=== PATIENT | male | born 1940 | race Caucasian/White ===

== ENCOUNTER 2019-02-10 13:50 | Emergency (ER) | payer MEDICARE, OTHER ==
[~2019-02-10] VITALS: Ht 177.8 cm; Wt 111.1 kg
[2019-02-10 14:48] LABS: BASOPHILS % 0.3 % (0.0-1.0); EOSINOPHILS % 0.1 % (0.0-6.0); HEMATOCRIT 38.9 % (38.2-49.6); HEMOGLOBIN 13.2 g/dL (14.0-18.0); LYMPHOCYTES # (AUTO) 1.5 (1.0-3.2); LYMPHOCYTES % 13.7 % (18.0-39.1); MEAN CORPUSCULAR HEMOGLOBIN 30.2 pg (28-32); MEAN CORPUSCULAR HGB CONC 33.9 g/dL (31-35); MONOCYTES # (AUTO) 0.8 (0.2-0.8); MONOCYTES % 7.5 % (4.4-11.3); NEUTROPHILS # (AUTO) 8.5 (2.1-6.9); NEUTROPHILS % 77.8 % (38.7-80.0); PLATELET COUNT 239 x10e3/uL (140-360); RED BLOOD COUNT 4.37 x10e6/uL (4.3-5.7); RED CELL DISTRIBUTION WIDTH 12.7 % (11.7-14.4)
[2019-02-10 14:59] LABS: INR 0.99; PROTHROMBIN TIME 13.6 seconds (11.9-14.5)
[2019-02-10 15:00] LABS: PARTIAL THROMBOPLASTIN TIME 25.9 seconds (23.8-35.5)
[2019-02-10 15:07] LABS: ALBUMIN 3.7 g/dL (3.5-5.0); ALBUMIN/GLOBULIN RATIO 1.1 (0.8-2.0); ANION GAP 13.6 mmol/L (8-16); CALCIUM 10.1 mg/dL (8.4-10.2); CREATININE, SERUM 1.38 mg/dL (0.72-1.25); POTASSIUM 3.6 mmol/L (3.5-5.1)
[2019-02-10 15:14] LABS: CREATINE KINASE MB 1.2 ng/mL (0-5.0)
[2019-02-10 15:26] LABS: BILIRUBIN,URINE SMALL (NEGATIVE); CLARITY,URINE SL CLOUDY (CLEAR); COLOR,URINE YELLOW (YELLOW); LEUKOCYTE ESTERASE ,URINE SMALL (NEGATIVE); NITRITE,URINE NEGATIVE (NEGATIVE); PROTEIN,URINE DIPSTICK TRACE (NEGATIVE); URINE UROBILINOGEN 1 mg/dL (0.2 - 1)
[2019-02-10 15:28] LABS: KETONES,URINE 1+ (NEGATIVE)
[2019-02-10 15:40] LABS: BACTERIA,URINE MODERATE /HPF; EPITHELIAL CELLS,URINE FEW /LPF; WBC,URINE (MAN) 21-50 /HPF (0-5)
[2019-02-10] MEDS ORDERED: LABETALOL HCL 5 MG/ML 20ML VIAL IV NR ×2 (15:45→16:23)
--- NOTE | 2019-02-10 16:00 | Diagnostic Imaging Report ---
Exam: Head CT without contrast History: Confusion Comparison studies: None Technique: Axial images were obtained from the skull base to the vertex. Coronal and sagittal images reconstructed from the axial data. Dose modulation, iterative reconstruction, and/or weight based adjustment of the mA/kV was utilized to reduce the radiation dose to as low as reasonably achievable. Radiation dose: Total DLP: 921.4 mGy*cm. Estimated effective dose: DLP x 0.015 Intravenous contrast: None Findings: Scalp: No abnormalities. Bones: No fractures, blastic or lytic lesions. Brain sulci: Mildly prominent but age appropriate. Ventricles: Moderate volume hemorrhage in the right ventricular trigone. No hydrocephalus.. Extra-axial spaces: 5 mm thecal subdural hematoma present along the posterior right falx. Parenchyma: Acute/hyperdense 0.7 x 1.7 x 3.1 cm (SI x AP x TV) intraparenchymal hematoma in the right occipital lobe extends anteriorly along the right medial temporal lobe is with surrounding edema. Pedicle hemorrhage representing the adjacent right lateral ventricular trigone. No other mass or other hemorrhage. A few scattered hypodensities in the supratentorial white matter are nonspecific but are most compatible with chronic microvascular ischemic changes. Sellar/suprasellar region: No abnormalities. Craniocervical junction: Patent foramen magnum. No Chiari one malformation. Incidental findings: Atherosclerotic calcifications in the carotid siphons. IMPRESSION: 1. Acute right occipital and medial temporal intraparenchymal hematoma with intraventricular extension and surrounding edema without herniation or hydrocephalus. 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 Additional considerations would include hemorrhage related to occult vascular malformation or underlying mass. Recommend CTA and brain MRI with IV contrast to further evaluate. 2. Small adjacent acute subdural hematoma along the right tentorium. 3. Mild chronic microvascular ischemic changes. Critical findings were discussed with Dr. Nguyen at 3:45 PM on 02/10/2019. Signed by: Dr. Singh Holloway M.D. on 02/10/2019 3:56 PM
[2019-02-10] MEDS ORDERED: CEFTRIAXONE SOD 1 GM/NS 50 ML 50 ML IV ONE (16:15)
--- NOTE | 2019-02-10 16:44 | NUR ---
REPORT CALLED TO NEETU DONALDSON AT THIS TIME AT [facility]
[2019-02-10] MEDS ORDERED: LEVETIRACETAM 500MG/5ML VIAL 500 MG in SODIUM CHLORIDE 0.9% 100 ML 100 ML IV SCH (16:45)
--- NOTE | 2019-02-10 16:45 | Diagnostic Imaging Report ---
EXAMINATION: CHEST SINGLE (PORTABLE) INDICATION: Confusion, headache COMPARISON: None FINDINGS: LINES/TUBES:EKG leads overlie the chest. LUNGS:The lungs are well-inflated. No focal consolidation or pulmonary edema. PLEURA:No pleural effusion or pneumothorax. MEDIASTINUM:The cardiomediastinal silhouette appears normal in size and shape. BONES/SOFT TISSUES:No acute osseous injury. ABDOMEN:No free air under the diaphragm. IMPRESSION: No focal pneumonia or pulmonary edema. Signed by: Олег Vergara MD on 02/10/2019 4:42 PM
[2019-02-10] MEDS ORDERED: NICARDIPINE 20MG/200ML PREMIX 200 ML IV SCH (17:00)
[2019-02-10] MEDS ORDERED: NICARDIPINE 20MG/200ML PREMIX 200 ML ONE (17:04)
[2019-02-10 17:07] VITALS: BP 166/109
== END 2019-02-10 17:09 | disposition other institution (70) ==
LOC: ER 13:50
DX: R41.82 Altered mental status, unspecified (principal); R51 Headache; I62.00 Nontraumatic subdural hemorrhage, unspecified; N30.91 Cystitis, unspecified with hematuria; I48.19 Other persistent atrial fibrillation; I10 Essential (primary) hypertension; E11.9 Type 2 diabetes mellitus without complications
CPT/HCPCS: 36415; 70450; 71045; 80053; 81001; 82550; 82553; 83735; 84484; 85025; 85610; 85730; 86850; 86900; 87086; 87400; 93005; 99284; J0696; J1953; J3490

== ENCOUNTER 2020-07-14 12:27 | Inpatient (IN) | payer MEDICARE, OTHER ==
[~2020-07-14] VITALS: Ht 177.8 cm; Wt 111.1 kg
[2020-07-14 12:56] LABS: BASOPHILS % 0.2 % (0.0-1.0); EOSINOPHILS # (AUTO) 0.2 (0.0-0.4); HEMATOCRIT 33.4 % (38.2-49.6); HEMOGLOBIN 11.4 g/dL (14.0-18.0); LYMPHOCYTES # (AUTO) 1.5 (1.0-3.2); LYMPHOCYTES % 18.1 % (18.0-39.1); MEAN CORPUSCULAR HEMOGLOBIN 29.5 pg (28-32); MEAN CORPUSCULAR HGB CONC 34.1 g/dL (31-35); MEAN CORPUSCULAR VOLUME 86.3 fL (81-99); MONOCYTES # (AUTO) 0.8 (0.2-0.8); MONOCYTES % 10.2 % (4.4-11.3); NEUTROPHILS # (AUTO) 5.6 (2.1-6.9); NEUTROPHILS % 67.9 % (38.7-80.0); PLATELET COUNT 315 x10e3/uL (140-360); RED BLOOD COUNT 3.87 x10e6/uL (4.3-5.7); RED CELL DISTRIBUTION WIDTH 12.7 % (11.7-14.4)
[2020-07-14] MEDS ORDERED: VANCOMYCIN 1GM/NS 250 ML 250 ML IV ONE (13:15)
[2020-07-14] MEDS ORDERED: MEROPENEM 1GM 100 ML IV ONE (13:15)
[2020-07-14 13:18] LABS: ALANINE AMINOTRANSFERASE 19 IU/L (0-55); ALBUMIN/GLOBULIN RATIO 0.9 (0.8-2.0); ALKALINE PHOSPHATASE 55 IU/L (40-150); ANION GAP 13.2 mmol/L (8-16); BLOOD UREA NITROGEN 12 mg/dL (7-26); BUN/CREATININE RATIO 11 (6-25); CALCIUM 8.6 mg/dL (8.4-10.2); CARBON DIOXIDE 28 mmol/L (22-29); CHLORIDE 91 mmol/L (98-107); CLARITY,URINE CLEAR (CLEAR); COLOR,URINE YELLOW (YELLOW); CREATINE KINASE 48 IU/L (30-200); CREATININE, SERUM 1.08 mg/dL (0.72-1.25); EST GLOMERULAR FILTRATION RATE > 60 ML/MIN (60-); GLUCOSE 134 mg/dL (74-118); INR 0.94; KETONES,URINE NEGATIVE (NEGATIVE); LEUKOCYTE ESTERASE ,URINE MODERATE (NEGATIVE); MAGNESIUM 1.7 MG/DL (1.3-2.1); NITRITE,URINE NEGATIVE (NEGATIVE); PARTIAL THROMBOPLASTIN TIME 30.9 seconds (23.8-35.5); POTASSIUM 3.2 mmol/L (3.5-5.1); PROTEIN,URINE DIPSTICK NEGATIVE (NEGATIVE); PROTHROMBIN TIME 13.2 seconds (11.9-14.5); SODIUM 129 mmol/L (136-145); URINE UROBILINOGEN 0.2 mg/dL (0.2 - 1)
[2020-07-14 13:38] LABS: BACTERIA,URINE RARE /HPF; RBC,URINE 0-5 /HPF (0-5); WBC,URINE (MAN) >50 /HPF (0-5)
[2020-07-14 13:39] LABS: EPITHELIAL CELLS,URINE FEW /LPF
[2020-07-14] MEDS ORDERED: ASPIRIN81 MG PO (14:28)
[2020-07-14] MEDS ORDERED: LISINOPRIL40 MG (14:28)
[2020-07-14] MEDS ORDERED: METFORMIN HCL500 M2 PO (14:28)
[2020-07-14] MEDS ORDERED: ATORVASTATIN CA20 MG PO (14:28)
[2020-07-14] MEDS ORDERED: NIFEDIPINE10 MG PO (14:28)
[2020-07-14] MEDS ORDERED: GLIPIZIDE5 MG PO (14:28)
[2020-07-14] MEDS ORDERED: FUROSEMIDE40 MG PO (14:28)
[2020-07-14] MEDS ORDERED: LEVOTHYROXINE50 MCG PO (14:28)
[2020-07-14] MEDS ORDERED: AMIODARONE HCL200 MG PO (14:28)
[2020-07-14] MEDS ORDERED: DEXTROSE 50% SYRINGE 50 ML IV PRN (15:15)
[2020-07-14] MEDS ORDERED: ONDANSETRON HCL INJ 2MG/ML 2ML 2 MG/ML VIAL IV PRN (15:15)
[2020-07-14] MEDS: INSULIN LISPRO 100 UNIT/1 ML 3ML VIAL SQ SCH ×2 (17:14→21:00)
[2020-07-14 19:40] VITALS: BP 129/84
[2020-07-14 20:00] VITALS: BP 129/84
[2020-07-14] MEDS ORDERED: POTASSIUM CHLORIDE 10MEQ EA PO ONE (22:30)
[2020-07-15] VITALS (7 sets, daily range): BP systolic 93–113; BP diastolic 59–71
[2020-07-15] MEDS ORDERED: VANCOMYCIN 1GM/NS 250 ML 250 ML IV SCH (01:00)
[2020-07-15 05:09] LABS: BASOPHILS % 0.4 % (0.0-1.0); EOSINOPHILS # (AUTO) 0.2 (0.0-0.4); EOSINOPHILS % 2.4 % (0.0-6.0); HEMATOCRIT 36.2 % (38.2-49.6); HEMOGLOBIN 12.5 g/dL (14.0-18.0); LYMPHOCYTES # (AUTO) 2.2 (1.0-3.2); LYMPHOCYTES % 21.7 % (18.0-39.1); MEAN CORPUSCULAR HEMOGLOBIN 29.6 pg (28-32); MEAN CORPUSCULAR HGB CONC 34.5 g/dL (31-35); MEAN CORPUSCULAR VOLUME 85.8 fL (81-99); MONOCYTES # (AUTO) 1.2 (0.2-0.8); MONOCYTES % 11.9 % (4.4-11.3); NEUTROPHILS # (AUTO) 6.3 (2.1-6.9); NEUTROPHILS % 62.5 % (38.7-80.0); PLATELET COUNT 344 x10e3/uL (140-360); RED BLOOD COUNT 4.22 x10e6/uL (4.3-5.7); RED CELL DISTRIBUTION WIDTH 12.6 % (11.7-14.4)
[2020-07-15 05:28] LABS: ALANINE AMINOTRANSFERASE 17 IU/L (0-55); ALBUMIN 2.9 g/dL (3.5-5.0); ALBUMIN/GLOBULIN RATIO 0.8 (0.8-2.0); ALKALINE PHOSPHATASE 55 IU/L (40-150); ANION GAP 12.6 mmol/L (8-16); BLOOD UREA NITROGEN 9 mg/dL (7-26); BUN/CREATININE RATIO 9 (6-25); CALCIUM 8.9 mg/dL (8.4-10.2); CARBON DIOXIDE 29 mmol/L (22-29); CHLORIDE 101 mmol/L (98-107); CHOL/HDL RATIO 3.1 (3.9-4.7); CHOLESTEROL 110 MD/DL (0-199); CREATININE, SERUM 1.04 mg/dL (0.72-1.25); EST GLOMERULAR FILTRATION RATE > 60 ML/MIN (60-); GLUCOSE 107 mg/dL (74-118); HDL CHOLESTEROL 36 MG/DL (40-60); LDL CHOLESTEROL 61 MG/DL (60-130); POTASSIUM 3.6 mmol/L (3.5-5.1); SODIUM 139 mmol/L (136-145); TRIGLYCERIDES 66 MG/DL (0-149)
[2020-07-15] MEDS: AZTREONAM 1 GM/NS 50 ML 50 ML IV SCH ×3 (05:53→20:53)
[2020-07-15] MEDS: LEVOTHYROXINE SODIUM 50 MCG TAB PO SCH (05:53)
[2020-07-15] MEDS: INSULIN LISPRO 100 UNIT/1 ML 3ML VIAL SQ SCH ×4 (07:14→21:00)
[2020-07-15] MEDS: ASPIRIN 81 MG ENTERIC COATED PO SCH (08:14)
[2020-07-15] MEDS: POTASSIUM CHLORIDE 10MEQ EA PO SCH ×2 (08:15→16:38)
[2020-07-15] MEDS: LISINOPRIL 10 MG TAB PO SCH ×2 (08:15→16:39)
[2020-07-15] MEDS: AMIODARONE HCL 200 MG TAB PO SCH (08:15)
[2020-07-15] MEDS: NIFEDIPINE CR 30 MG TAB PO SCH (08:15)
[2020-07-15] MEDS ORDERED: GLIPIZIDE 5 MG TAB PO SCH (09:00)
[2020-07-15] MEDS ORDERED: FUROSEMIDE 40 MG TAB PO SCH (09:00)
[2020-07-15] MEDS ORDERED: FUROSEMIDE INJ 10 MG/ML 4 ML VIAL IV ONE (10:30)
[2020-07-15] MEDS: APIXABAN 5 MG TABLET PO SCH ×2 (11:00→16:38)
[2020-07-15] MEDS: CLINDAMYCIN 300MG 50 ML IV SCH ×3 (11:00→23:24)
[2020-07-15] MEDS: LACTOBACILLUS ACIDOPHILUS CAPSULE PO SCH ×3 (11:00→20:52)
[2020-07-15] MEDS: FUROSEMIDE INJ 10 MG/ML 4 ML VIAL IV SCH (14:15)
[2020-07-15] MEDS: ATORVASTATIN 20 MG TAB PO SCH (20:52)
[2020-07-16] VITALS (8 sets, daily range): BP systolic 90–104; BP diastolic 63–70
[2020-07-16] MEDS ORDERED: SODIUM CHLORIDE 0.9% 100 ML ONE (05:03)
[2020-07-16] MEDS: CLINDAMYCIN 300MG 50 ML IV SCH ×4 (05:26→22:31)
[2020-07-16] MEDS: AZTREONAM 1 GM/NS 50 ML 50 ML IV SCH ×3 (05:26→21:40)
[2020-07-16] MEDS: LEVOTHYROXINE SODIUM 50 MCG TAB PO SCH (05:26)
[2020-07-16] MEDS: FUROSEMIDE INJ 10 MG/ML 4 ML VIAL IV SCH ×2 (05:26→13:23)
[2020-07-16 06:44] LABS: ANION GAP 13.4 mmol/L (8-16); BLOOD UREA NITROGEN 9 mg/dL (7-26); BUN/CREATININE RATIO 9 (6-25); CALCIUM 8.5 mg/dL (8.4-10.2); CARBON DIOXIDE 27 mmol/L (22-29); CHLORIDE 104 mmol/L (98-107); CREATININE, SERUM 0.99 mg/dL (0.72-1.25); EST GLOMERULAR FILTRATION RATE > 60 ML/MIN (60-); GLUCOSE 107 mg/dL (74-118); POTASSIUM 3.4 mmol/L (3.5-5.1); SODIUM 141 mmol/L (136-145)
[2020-07-16] MEDS ORDERED: GLIPIZIDE 5 MG TAB PO SCH (07:30)
[2020-07-16] MEDS: POTASSIUM CHLORIDE 10MEQ EA PO SCH ×2 (08:34→18:22)
[2020-07-16] MEDS: APIXABAN 5 MG TABLET PO SCH ×2 (08:34→17:00)
[2020-07-16] MEDS: ASPIRIN 81 MG ENTERIC COATED PO SCH (08:34)
[2020-07-16] MEDS: LISINOPRIL 10 MG TAB PO SCH ×2 (08:34→18:22)
[2020-07-16] MEDS: LACTOBACILLUS ACIDOPHILUS CAPSULE PO SCH ×3 (08:35→21:40)
[2020-07-16] MEDS ORDERED: FUROSEMIDE INJ 10 MG/ML 4 ML VIAL IV SCH (09:00)
[2020-07-16] MEDS: NIFEDIPINE CR 30 MG TAB PO SCH (09:26)
[2020-07-16] MEDS: AMIODARONE HCL 200 MG TAB PO SCH (09:26)
[2020-07-16] MEDS: INSULIN LISPRO 100 UNIT/1 ML 3ML VIAL SQ SCH ×4 (09:38→21:40)
[2020-07-16] MEDS: ATORVASTATIN 20 MG TAB PO SCH (21:40)
[2020-07-17] VITALS (7 sets, daily range): BP systolic 93–103; BP diastolic 59–74
[2020-07-17] MEDS: LEVOTHYROXINE SODIUM 50 MCG TAB PO SCH (06:20)
[2020-07-17] MEDS: FUROSEMIDE INJ 10 MG/ML 4 ML VIAL IV SCH ×2 (06:20→11:44)
[2020-07-17] MEDS: CLINDAMYCIN 300MG 50 ML IV SCH ×4 (06:20→22:33)
[2020-07-17 06:46] LABS: ANION GAP 12.7 mmol/L (8-16); CALCIUM 8.9 mg/dL (8.4-10.2); CREATININE, SERUM 1.21 mg/dL (0.72-1.25); POTASSIUM 3.7 mmol/L (3.5-5.1)
[2020-07-17] MEDS: AZTREONAM 1 GM/NS 50 ML 50 ML IV SCH ×3 (07:00→21:47)
[2020-07-17] MEDS: INSULIN LISPRO 100 UNIT/1 ML 3ML VIAL SQ SCH ×4 (07:30→20:19)
[2020-07-17] MEDS: ASPIRIN 81 MG ENTERIC COATED PO SCH (09:17)
[2020-07-17] MEDS: APIXABAN 5 MG TABLET PO SCH ×2 (09:17→17:08)
[2020-07-17] MEDS: AMIODARONE HCL 200 MG TAB PO SCH (09:17)
[2020-07-17] MEDS: POTASSIUM CHLORIDE 10MEQ EA PO SCH ×2 (09:17→17:08)
[2020-07-17] MEDS: LISINOPRIL 10 MG TAB PO SCH ×2 (09:18→17:08)
[2020-07-17] MEDS: LACTOBACILLUS ACIDOPHILUS CAPSULE PO SCH ×3 (09:18→21:47)
[2020-07-17] MEDS: NIFEDIPINE CR 30 MG TAB PO SCH (09:18)
[2020-07-17] MEDS: ATORVASTATIN 20 MG TAB PO SCH (21:47)
[2020-07-18] VITALS (9 sets, daily range): BP systolic 93–118; BP diastolic 57–83
[2020-07-18] MEDS: CLINDAMYCIN 300MG 50 ML IV SCH ×4 (05:51→23:56)
[2020-07-18] MEDS: LEVOTHYROXINE SODIUM 50 MCG TAB PO SCH (05:51)
[2020-07-18] MEDS: AZTREONAM 1 GM/NS 50 ML 50 ML IV SCH ×3 (06:36→21:32)
[2020-07-18 06:44] LABS: BASOPHILS # (AUTO) 0.1 (0.0-0.1); BASOPHILS % 0.7 % (0.0-1.0); EOSINOPHILS # (AUTO) 0.3 (0.0-0.4); EOSINOPHILS % 3.5 % (0.0-6.0); HEMOGLOBIN 10.3 g/dL (14.0-18.0); LYMPHOCYTES % 23.8 % (18.0-39.1); MEAN CORPUSCULAR HEMOGLOBIN 29.7 pg (28-32); MEAN CORPUSCULAR HGB CONC 33.2 g/dL (31-35); MEAN CORPUSCULAR VOLUME 89.3 fL (81-99); MONOCYTES # (AUTO) 0.9 (0.2-0.8); MONOCYTES % 10.2 % (4.4-11.3); NEUTROPHILS # (AUTO) 5.1 (2.1-6.9); NEUTROPHILS % 60.5 % (38.7-80.0); PLATELET COUNT 368 x10e3/uL (140-360); RED BLOOD COUNT 3.47 x10e6/uL (4.3-5.7); RED CELL DISTRIBUTION WIDTH 13.4 % (11.7-14.4)
[2020-07-18] MEDS: FUROSEMIDE INJ 10 MG/ML 4 ML VIAL IV SCH ×2 (06:55→12:53)
[2020-07-18 07:05] LABS: ANION GAP 13.6 mmol/L (8-16); BLOOD UREA NITROGEN 14 mg/dL (7-26); BUN/CREATININE RATIO 13 (6-25); CALCIUM 8.3 mg/dL (8.4-10.2); CARBON DIOXIDE 28 mmol/L (22-29); CHLORIDE 104 mmol/L (98-107); CREATININE, SERUM 1.08 mg/dL (0.72-1.25); EST GLOMERULAR FILTRATION RATE > 60 ML/MIN (60-); GLUCOSE 93 mg/dL (74-118); POTASSIUM 3.6 mmol/L (3.5-5.1); SODIUM 142 mmol/L (136-145)
[2020-07-18] MEDS: INSULIN LISPRO 100 UNIT/1 ML 3ML VIAL SQ SCH ×4 (07:30→21:00)
[2020-07-18] MEDS: ASPIRIN 81 MG ENTERIC COATED PO SCH (09:16)
[2020-07-18] MEDS: APIXABAN 5 MG TABLET PO SCH ×2 (09:16→16:29)
[2020-07-18] MEDS: AMIODARONE HCL 200 MG TAB PO SCH (09:16)
[2020-07-18] MEDS: LISINOPRIL 10 MG TAB PO SCH ×2 (09:17→16:29)
[2020-07-18] MEDS: POTASSIUM CHLORIDE 10MEQ EA PO SCH ×2 (09:17→16:29)
[2020-07-18] MEDS: LACTOBACILLUS ACIDOPHILUS CAPSULE PO SCH ×3 (09:19→21:27)
[2020-07-18] MEDS ORDERED: ONDANSETRON HCL 4 MG ORAL DISINTEGRATING TAB PO PRN (14:00)
[2020-07-18] MEDS: ATORVASTATIN 20 MG TAB PO SCH (21:27)
[2020-07-19] VITALS (8 sets, daily range): BP systolic 101–131; BP diastolic 69–94
[2020-07-19] MEDS: CLINDAMYCIN 300MG 50 ML IV SCH ×4 (05:21→22:45)
[2020-07-19] MEDS: LEVOTHYROXINE SODIUM 50 MCG TAB PO SCH (06:16)
[2020-07-19] MEDS: FUROSEMIDE INJ 10 MG/ML 4 ML VIAL IV SCH ×2 (06:16→11:50)
[2020-07-19] MEDS: AZTREONAM 1 GM/NS 50 ML 50 ML IV SCH ×3 (06:16→21:44)
[2020-07-19 06:19] LABS: ANION GAP 13.3 mmol/L (8-16); CREATININE, SERUM 1.21 mg/dL (0.72-1.25); POTASSIUM 4.3 mmol/L (3.5-5.1)
[2020-07-19] MEDS: INSULIN LISPRO 100 UNIT/1 ML 3ML VIAL SQ SCH ×4 (07:30→21:00)
[2020-07-19] MEDS: ASPIRIN 81 MG ENTERIC COATED PO SCH (09:26)
[2020-07-19] MEDS: AMIODARONE HCL 200 MG TAB PO SCH (09:26)
[2020-07-19] MEDS: APIXABAN 5 MG TABLET PO SCH ×2 (09:26→17:59)
[2020-07-19] MEDS: LACTOBACILLUS ACIDOPHILUS CAPSULE PO SCH ×3 (09:27→21:39)
[2020-07-19] MEDS: POTASSIUM CHLORIDE 10MEQ EA PO SCH ×2 (09:27→17:59)
[2020-07-19] MEDS: LISINOPRIL 10 MG TAB PO SCH ×2 (09:27→17:59)
[2020-07-19] MEDS: HYDROCORTISONE 1% CREAM 30 GM TUBE TOP SCH ×2 (09:38→17:59)
[2020-07-19] MEDS: ATORVASTATIN 20 MG TAB PO SCH (21:39)
[2020-07-20] VITALS (10 sets, daily range): BP systolic 110–140; BP diastolic 72–89
[2020-07-20] MEDS: CLINDAMYCIN 300MG 50 ML IV SCH (04:42)
[2020-07-20] MEDS: FUROSEMIDE INJ 10 MG/ML 4 ML VIAL IV SCH ×2 (05:46→12:03)
[2020-07-20] MEDS: LEVOTHYROXINE SODIUM 50 MCG TAB PO SCH (05:46)
[2020-07-20] MEDS: AZTREONAM 1 GM/NS 50 ML 50 ML IV SCH (05:46)
[2020-07-20] MEDS: INSULIN LISPRO 100 UNIT/1 ML 3ML VIAL SQ SCH ×4 (07:30→20:39)
[2020-07-20] MEDS: AMIODARONE HCL 200 MG TAB PO SCH (08:38)
[2020-07-20] MEDS: ASPIRIN 81 MG ENTERIC COATED PO SCH (08:38)
[2020-07-20] MEDS: POTASSIUM CHLORIDE 10MEQ EA PO SCH ×2 (08:39→16:20)
[2020-07-20] MEDS: APIXABAN 5 MG TABLET PO SCH ×2 (08:39→16:20)
[2020-07-20] MEDS: LISINOPRIL 10 MG TAB PO SCH ×2 (08:40→16:20)
[2020-07-20] MEDS: LACTOBACILLUS ACIDOPHILUS CAPSULE PO SCH ×3 (08:40→16:13)
[2020-07-20] MEDS ORDERED: VANCOMYCIN 1GM/NS 250 ML 250 ML IV SCH ×2 (09:00→11:00)
[2020-07-20] MEDS: HYDROCORTISONE 1% CREAM 30 GM TUBE TOP SCH ×2 (09:42→16:57)
[2020-07-20] MEDS: PREDNISONE 20 MG TAB PO SCH (15:30)
[2020-07-20] MEDS: ATORVASTATIN 20 MG TAB PO SCH (20:42)
[2020-07-20] MEDS ORDERED: HYDROXYZINE HCL 10 MG TAB PO PRN (21:15)
[2020-07-21 00:13] VITALS: BP 129/82
[2020-07-21 04:00] VITALS: BP 105/81
[2020-07-21 04:48] LABS: BASOPHILS % 0.3 % (0.0-1.0); EOSINOPHILS % 0.2 % (0.0-6.0); HEMATOCRIT 32.5 % (38.2-49.6); HEMOGLOBIN 10.8 g/dL (14.0-18.0); LYMPHOCYTES # (AUTO) 1.4 (1.0-3.2); LYMPHOCYTES % 13.3 % (18.0-39.1); MEAN CORPUSCULAR HEMOGLOBIN 29.4 pg (28-32); MEAN CORPUSCULAR HGB CONC 33.2 g/dL (31-35); MEAN CORPUSCULAR VOLUME 88.6 fL (81-99); MONOCYTES # (AUTO) 0.6 (0.2-0.8); MONOCYTES % 5.6 % (4.4-11.3); NEUTROPHILS # (AUTO) 8.4 (2.1-6.9); NEUTROPHILS % 80.1 % (38.7-80.0); PLATELET COUNT 376 x10e3/uL (140-360); RED BLOOD COUNT 3.67 x10e6/uL (4.3-5.7); RED CELL DISTRIBUTION WIDTH 13.3 % (11.7-14.4)
[2020-07-21 05:12] LABS: ANION GAP 13.6 mmol/L (8-16); BLOOD UREA NITROGEN 24 mg/dL (7-26); BUN/CREATININE RATIO 22 (6-25); CALCIUM 8.8 mg/dL (8.4-10.2); CARBON DIOXIDE 27 mmol/L (22-29); CHLORIDE 105 mmol/L (98-107); CREATININE, SERUM 1.07 mg/dL (0.72-1.25); EST GLOMERULAR FILTRATION RATE > 60 ML/MIN (60-); GLUCOSE 131 mg/dL (74-118); POTASSIUM 4.6 mmol/L (3.5-5.1); SODIUM 141 mmol/L (136-145)
[2020-07-21] MEDS: FUROSEMIDE INJ 10 MG/ML 4 ML VIAL IV SCH (05:50)
[2020-07-21] MEDS: LEVOTHYROXINE SODIUM 50 MCG TAB PO SCH (05:50)
[2020-07-21] MEDS: INSULIN LISPRO 100 UNIT/1 ML 3ML VIAL SQ SCH (07:30)
[2020-07-21 08:03] VITALS: BP 105/81
[2020-07-21 08:11] VITALS: BP 135/85
[2020-07-21 08:32] VITALS: BP 135/85
[2020-07-21] MEDS: ASPIRIN 81 MG ENTERIC COATED PO SCH (08:55)
[2020-07-21] MEDS: APIXABAN 5 MG TABLET PO SCH (08:56)
[2020-07-21] MEDS: AMIODARONE HCL 200 MG TAB PO SCH (08:56)
[2020-07-21] MEDS: POTASSIUM CHLORIDE 10MEQ EA PO SCH (08:57)
[2020-07-21] MEDS: LISINOPRIL 10 MG TAB PO SCH (08:57)
[2020-07-21] MEDS: PREDNISONE 20 MG TAB PO SCH (08:57)
[2020-07-21] MEDS: LACTOBACILLUS ACIDOPHILUS CAPSULE PO SCH (08:58)
[2020-07-21] MEDS: HYDROCORTISONE 1% CREAM 30 GM TUBE TOP SCH (09:13)
== END 2020-07-21 10:54 | disposition home or self-care (01) | DRG 603 ==
LOC: ER 13:00 → ERHOLD 16:32 → IMCU 20:28 → MED/SURG 07-15 08:13
PROVIDERS: ADMIT Internal Medicine; ATTEND Internal Medicine
DX: L03.116 Cellulitis of left lower limb (principal); I48.0 Paroxysmal atrial fibrillation; E03.9 Hypothyroidism, unspecified; E78.5 Hyperlipidemia, unspecified; I11.0 Hypertensive heart disease with heart failure; I50.9 Heart failure, unspecified; E11.9 Type 2 diabetes mellitus without complications; L95.8 Other vasculitis limited to the skin; E66.01 Morbid (severe) obesity due to excess calories; Z88.0 Allergy status to penicillin; Z88.8 Allergy status to other drugs, medicaments and biological substances; Z68.35 Body mass index [BMI] 35.0-35.9, adult; Z20.822 Contact with and (suspected) exposure to COVID-19
CPT/HCPCS: 36415; 71045; 80048; 80053; 80061; 81001; 82550; 82553; 82948; 83605; 83735; 84484; 85025; 85610; 85651; 85730; 86039; 87040; 87086; 93005; 93971; 99251; 99284; J1940; J3370; J3410; J7050; J7512; U0002

== ENCOUNTER 2020-07-30 14:10 | Observation (INO) | payer MEDICARE, OTHER ==
[~2020-07-30] VITALS: Ht 167.6 cm; Wt 111.1 kg
[~2020-07-30 14:10] MED LIST: AMIODARONE HCL200 MG PO; ASPIRIN81 MG PO; ATORVASTATIN CA20 MG PO; FUROSEMIDE40 MG PO; GLIPIZIDE5 MG PO; LEVOTHYROXINE50 MCG PO; LISINOPRIL40 MG; METFORMIN HCL500 M2 PO; NIFEDIPINE10 MG PO
[2020-07-30] MEDS ORDERED: ONDANSETRON HCL INJ 2MG/ML 2ML 2 MG/ML VIAL IV NR (15:08)
[2020-07-30 16:16] LABS: BASOPHILS % 0.1 % (0.0-1.0); EOSINOPHILS % 0.1 % (0.0-6.0); HEMATOCRIT 38.2 % (38.2-49.6); HEMOGLOBIN 13.6 g/dL (14.0-18.0); MEAN CORPUSCULAR HEMOGLOBIN 29.8 pg (28-32); MEAN CORPUSCULAR HGB CONC 35.6 g/dL (31-35); MEAN CORPUSCULAR VOLUME 83.6 fL (81-99); MONOCYTES # (AUTO) 1.1 (0.2-0.8); MONOCYTES % 7.6 % (4.4-11.3); NEUTROPHILS # (AUTO) 12.2 (2.1-6.9); NEUTROPHILS % 83.4 % (38.7-80.0); PLATELET COUNT 402 x10e3/uL (140-360); RED BLOOD COUNT 4.57 x10e6/uL (4.3-5.7)
[2020-07-30 16:34] LABS: INR 1.12; PARTIAL THROMBOPLASTIN TIME 26.8 seconds (23.8-35.5)
[2020-07-30 16:36] LABS: COLOR,URINE YELLOW (YELLOW)
[2020-07-30 16:37] LABS: ALBUMIN 3.8 g/dL (3.5-5.0); ALBUMIN/GLOBULIN RATIO 1.2 (0.8-2.0); ANION GAP 22.1 mmol/L (8-16); CALCIUM 9.5 mg/dL (8.4-10.2); CLARITY,URINE CLEAR (CLEAR); CREATININE, SERUM 1.9 mg/dL (0.72-1.25); KETONES,URINE NEGATIVE (NEGATIVE); LEUKOCYTE ESTERASE ,URINE NEGATIVE (NEGATIVE); NITRITE,URINE NEGATIVE (NEGATIVE); POTASSIUM 4.1 mmol/L (3.5-5.1); PROTEIN,URINE DIPSTICK NEGATIVE (NEGATIVE); URINE UROBILINOGEN 0.2 mg/dL (0.2 - 1)
[2020-07-30 16:41] LABS: CREATINE KINASE 26 IU/L (30-200); MAGNESIUM 1.8 MG/DL (1.3-2.1)
[2020-07-30 16:47] LABS: BACTERIA,URINE FEW /HPF; EPITHELIAL CELLS,URINE FEW /LPF; RBC,URINE 0-5 /HPF (0-5); WBC,URINE (MAN) 0-5 /HPF (0-5)
[2020-07-30] MEDS ORDERED: SODIUM CHLORIDE 0.9% 1000ML 1,000 ML IV STA (16:55)
[2020-07-30] MEDS ORDERED: MEROPENEM 1GM 100 ML IV ONE (17:02)
[2020-07-30] MEDS ORDERED: ONDANSETRON HCL INJ 2MG/ML 2ML 2 MG/ML VIAL IV PRN (19:45)
[2020-07-30] MEDS ORDERED: ACETAMINOPHEN 325 MG TAB PO PRN (19:45)
[2020-07-30] MEDS ORDERED: DEXTROSE 50% SYRINGE 50 ML IV PRN (19:45)
[2020-07-30] MEDS: SODIUM CHLORIDE 0.9% 1000ML 1,000 ML IV SCH (20:40)
[2020-07-30] MEDS: INSULIN LISPRO 100 UNIT/1 ML 3ML VIAL SQ SCH (21:00)
[2020-07-30] MEDS: METOCLOPRAMIDE HCL 10 MG/2ML VIAL IV SCH (22:42)
[2020-07-31] MEDS: MEROPENEM 500MG 500 MG in SODIUM CHLORIDE 0.9% 50ML 50 ML IV SCH ×4 (00:16→22:00)
[2020-07-31] MEDS: SODIUM CHLORIDE 0.9% 1000ML 1,000 ML IV SCH ×3 (06:32→17:45)
[2020-07-31 06:44] LABS: BASOPHILS % 0.1 % (0.0-1.0); EOSINOPHILS % 0.1 % (0.0-6.0); HEMATOCRIT 41.3 % (38.2-49.6); HEMOGLOBIN 14.6 g/dL (14.0-18.0); LYMPHOCYTES % 12.2 % (18.0-39.1); MEAN CORPUSCULAR HEMOGLOBIN 29.6 pg (28-32); MEAN CORPUSCULAR HGB CONC 35.4 g/dL (31-35); MEAN CORPUSCULAR VOLUME 83.8 fL (81-99); MONOCYTES # (AUTO) 1.7 (0.2-0.8); MONOCYTES % 10.5 % (4.4-11.3); NEUTROPHILS # (AUTO) 12.2 (2.1-6.9); NEUTROPHILS % 75.1 % (38.7-80.0); PLATELET COUNT 369 x10e3/uL (140-360); RED BLOOD COUNT 4.93 x10e6/uL (4.3-5.7); RED CELL DISTRIBUTION WIDTH 12.9 % (11.7-14.4)
[2020-07-31 07:09] LABS: ANION GAP 20.9 mmol/L (8-16); CALCIUM 9.5 mg/dL (8.4-10.2); CREATININE, SERUM 1.78 mg/dL (0.72-1.25); POTASSIUM 3.9 mmol/L (3.5-5.1)
[2020-07-31] MEDS: INSULIN LISPRO 100 UNIT/1 ML 3ML VIAL SQ SCH ×4 (07:30→21:00)
[2020-07-31] MEDS: LEVOTHYROXINE SODIUM 50 MCG TAB PO SCH (08:17)
[2020-07-31] MEDS: METOCLOPRAMIDE HCL 10 MG/2ML VIAL IV SCH ×4 (08:17→21:04)
[2020-07-31] MEDS: ASPIRIN 81 MG CHEW TAB PO SCH (08:22)
[2020-07-31] MEDS: AMIODARONE HCL 200 MG TAB PO SCH (08:23)
[2020-07-31 17:06] VITALS: BP 105/68
[2020-07-31 17:21] VITALS: BP 105/68
[2020-07-31 17:31] VITALS: BP 105/68
[2020-07-31 20:00] VITALS: BP 99/67
[2020-07-31 20:33] VITALS: BP 105/68
[2020-07-31] MEDS ORDERED: SODIUM CHLORIDE 0.9% 50ML 50 ML ONE (21:06)
[2020-08-01] VITALS: BP 113/75
[2020-08-01] MEDS ORDERED: POTASSIUM CHLO10 ME1 PO (02:43)
[2020-08-01] MEDS ORDERED: ELIQUIS2.5 MG PO (02:43)
[2020-08-01] MEDS ORDERED: LISINOPRIL10 MG PO (02:43)
[2020-08-01] MEDS ORDERED: PREDNISONE20 MG PO (02:43)
[2020-08-01] MEDS ORDERED: FUROSEMIDE40 MG PO (02:43)
[2020-08-01 04:00] VITALS: BP 109/81
[2020-08-01] MEDS: SODIUM CHLORIDE 0.9% 1000ML 1,000 ML IV SCH (05:45)
[2020-08-01] MEDS: MEROPENEM 500MG 500 MG in SODIUM CHLORIDE 0.9% 50ML 50 ML IV SCH (05:45)
[2020-08-01] MEDS: INSULIN LISPRO 100 UNIT/1 ML 3ML VIAL SQ SCH ×2 (07:30→11:30)
[2020-08-01 08:00] VITALS: BP 105/68
[2020-08-01] MEDS: AMIODARONE HCL 200 MG TAB PO SCH (08:35)
[2020-08-01] MEDS: LEVOTHYROXINE SODIUM 50 MCG TAB PO SCH (08:35)
[2020-08-01] MEDS: ASPIRIN 81 MG CHEW TAB PO SCH (08:36)
[2020-08-01] MEDS: METOCLOPRAMIDE HCL 10 MG/2ML VIAL IV SCH ×2 (08:37→12:13)
[2020-08-01 08:45] VITALS: BP 105/68
[2020-08-01 09:58] LABS: BASOPHILS % 0.3 % (0.0-1.0); EOSINOPHILS # (AUTO) 0.1 (0.0-0.4); EOSINOPHILS % 0.8 % (0.0-6.0); HEMATOCRIT 39.7 % (38.2-49.6); HEMOGLOBIN 13.2 g/dL (14.0-18.0); LYMPHOCYTES # (AUTO) 2.1 (1.0-3.2); LYMPHOCYTES % 14.9 % (18.0-39.1); MEAN CORPUSCULAR HEMOGLOBIN 29.5 pg (28-32); MEAN CORPUSCULAR HGB CONC 33.2 g/dL (31-35); MEAN CORPUSCULAR VOLUME 88.8 fL (81-99); MONOCYTES # (AUTO) 1.8 (0.2-0.8); MONOCYTES % 12.7 % (4.4-11.3); NEUTROPHILS # (AUTO) 9.9 (2.1-6.9); NEUTROPHILS % 69.5 % (38.7-80.0); PLATELET COUNT 283 x10e3/uL (140-360); RED BLOOD COUNT 4.47 x10e6/uL (4.3-5.7); RED CELL DISTRIBUTION WIDTH 13.1 % (11.7-14.4)
[2020-08-01 10:20] LABS: ANION GAP 15.6 mmol/L (8-16); CALCIUM 8.6 mg/dL (8.4-10.2); CREATININE, SERUM 1.37 mg/dL (0.72-1.25); POTASSIUM 3.6 mmol/L (3.5-5.1)
[2020-08-01 11:48] VITALS: BP 101/68
[2020-08-01] MEDS ORDERED: ONDANSETRON HCL 4 MG ORAL DISINTEGRATING TAB PO PRN (13:15)
[2020-08-01] MEDS ORDERED: CIPRO500 MG PO (15:08)
[2020-08-01] MEDS ORDERED: FLOMAX0.4 MG PO (15:08)
== END 2020-08-01 15:41 | disposition home or self-care (01) ==
LOC: ER 15:44 → ERHOLD 17:42 → INTOOBSV 17:42 → MED/SURG2 07-31 16:30
PROVIDERS: ADMIT Internal Medicine; ATTEND Internal Medicine
DX: N39.0 Urinary tract infection, site not specified (principal); E87.1 Hypo-osmolality and hyponatremia; E86.0 Dehydration; N41.9 Inflammatory disease of prostate, unspecified; N18.2 Chronic kidney disease, stage 2 (mild); N17.9 Acute kidney failure, unspecified; I48.0 Paroxysmal atrial fibrillation; E03.9 Hypothyroidism, unspecified; Z88.0 Allergy status to penicillin; Z88.8 Allergy status to other drugs, medicaments and biological substances; B96.20 Unspecified Escherichia coli [E. coli] as the cause of diseases classified elsewhere; Z20.822 Contact with and (suspected) exposure to COVID-19; T50.1X5A Adverse effect of loop [high-ceiling] diuretics, initial encounter; T50.2X5A Adverse effect of carbonic-anhydrase inhibitors, benzothiadiazides and other diuretics, initial encounter
CPT/HCPCS: 36415 ×3; 71045; 74176; 80048 ×2; 80053; 81001; 82550; 82553; 82948 ×3; 83605 ×2; 83735; 83880; 84484; 85025 ×3; 85610; 85730; 87040; 87086; 87186; 93005; 99284; G0378 ×3; J2185 ×4; J2405; J2765 ×3; J7030 ×3; U0002